=== PATIENT | male | born 1980 | race Hispanic/Latino ===

== ENCOUNTER 2020-03-27 00:47 | Emergency (ER) | payer SELFPAY ==
--- NOTE | ~2020-03-27 | US_ITS ---
EXAMINATION: US scrotum doppler EXAM DATE: 03/27/2020 02:02 INDICATION: Left testicular pain. TECHNIQUE: Multiple grayscale and Doppler images of the testicles and scrotum were obtained bilateral ly. There is no prior study for comparison. FINDINGS: Right testicle measures 4.0 x 2.3 x 3.1 cm and is morphologically normal. Low resistance Doppler kimberly w confirmed. The epididymis is unremarkable. There is a small hydrocele. Left testicle measures 4.0 x 2.3 x 3.0 cm and is morphologically normal. Low resistance Doppler flow confirmed. The epididymis is unremarkable. There is a small hydrocele and a small varicocele. IMPRESSION: 1. Small left-sided hydrocele and varicocele. 2. Small right hydrocele. 3. Normal testicular parenchyma. Reviewed, dictated and finalized at location A.
[2020-03-27 00:50] VITALS: BP 159/97; PULSE 89; RESP 14; TEMP 36.2; O2SAT 99
[2020-03-27] MEDS: KETOROLAC (*BKC) 60 MG/2 ML VIAL IM (01:31)
--- NOTE | 2020-03-27 01:50 | PC.NURSE ---
Pt. to ultrasound
[2020-03-27 02:31] LABS: Add Urine Microscopic? NO; Appearance Urine Clear (Clear); Bacteria Urine Trace /hpf; Bilirubin Urine Negative (Negative); Blood Urine Negative (Negative); Color Urine Straw (Yellow); Glucose Urine UA Negative (Negative); Ketones Urine Negative (Negative); Leukocyte Esterase Ur Negative LEU/UL (Negative); Nitrate Urine Negative (Negative); Protein Urine Negative (Negative); Specific Grav Ur 1.006 (1.001-1.035); Urobilinogen Urine Negative mg/dL (<2.0); WBC Urine 0-3 /hpf
--- NOTE | 2020-03-27 02:58 | ED.MALEGU ---
HPI - Male Genitourinary General Chief complaint: Urogenital-Male Stated complaint: penile pain Time Seen by Provider: 03/27/20 01:15 History of Present Illness HPI Narrative: Patient is a 39-year-old male who presents the ER with left-sided testicular pain. Ongoing for the last 5 days. Reports it began after he had carried a 22 foot ladder. No dysuria or urinary frequency. No blood in his urine. Does not believe she has any exposure for sexual transmitted infections. No discharge from tip of his penis. No masses that he can tell. No alleviating factors. Related Data Home Medications Medication Instructions Recorded Confirmed No Home Medications 03/27/20 Allergies Allergy/AdvReac Type Severity Reaction Status Date / Time No Known Allergies Allergy Verified 03/27/20 01:09 Review of Systems Constitutional: Constitutional: Denies chills and Denies fever(s) Gastrointestinal: Gastrointestinal: Denies abdominal pain, Denies nausea and Denies vomiting Genitourinary: Genitourinary: Denies hematuria, Denies dysuria, Denies penile discharge, Reports testicular pain and Denies urinary frequency PMFSH Past Medical History Medical History (Updated 03/27/20 @ 03:09 by Darrell Cummins MD) Healthy adult male Surgical History Surgical History (Updated 03/27/20 @ 03:00 by Darrell Cummins MD) No history of previous surgery Social History Social History (Updated 03/27/20 @ 03:00 by Darrell Cummins MD) Smoking status: Never smoker Exam Narrative: Exam Narrative: GENERAL: Well-appearing, well-nourished, and in no acute distress. HEAD: Normocephalic, atraumatic. ABDOMEN: Soft, nontender, nondistended. : Normal-appearing external genitalia with uncircumcised penis. No penile discharge. Mild discomfort along the vas deferens of the left testicle without testicular tenderness or swelling. No tenderness over the epididymis. Unremarkable exam of the right testicle. EXTREMITIES: Normal range of motion. No edema. NEURO: Alert and oriented x3. PSYCH: Normal mood and affect. Course Course Emergency Course: Patient educated regarding varicoceles. Will give urology follow-up. Vital Signs Vital signs: Vital Signs Temperature 97.2 F L 03/27/20 00:50 Pulse Rate 89 03/27/20 00:50 Respiratory Rate 14 03/27/20 00:50 Blood Pressure 159/97 H 03/27/20 00:50 Pulse Oximetry 99 03/27/20 00:50 Temperature 97.2 F L 03/27/20 00:50 Pulse Rate 89 03/27/20 00:50 Respiratory Rate 14 03/27/20 00:50 Blood Pressure 159/97 H 03/27/20 00:50 Pulse Oximetry 99 03/27/20 00:50 MDM - Male Genitourinary Lab Data Labs: Lab Results 03/27/20 Range/Units 02:07 Urine Color Straw (Yellow) Urine Appearance Clear (Clear) Urine pH 6.0 (5.0-9.0) Ur Specific [place] 1.006 (1.001-1.035) Urine Protein Negative (Negative) mg/dL Urine Glucose (UA) Negative (Negative) mg/dL Urine Ketones Negative (Negative) mg/dL Ur Blood (Man) Negative (Negative) Urine Nitrate Negative (Negative) Urine Bilirubin Negative (Negative) Urine Urobilinogen Negative (<2.0) mg/dL Leukocyte Esterase Rfl Negative (Negative) XANDER/UL Urine WBC 0-3 /hpf Urine Bacteria Trace /hpf Imaging Data Radiologist's impression: Ultrasound scrotum: Testicles are homogenous and symmetric in appearance. No evidence for testicular torsion bilaterally. Bilateral varicoceles. Trace bilateral hydroceles. Discharge Plan Discharge Clinical Impression: Varicocele Patient Disposition: Home, Self-Care Condition: Stable Instructions: Varicocele (ED), Testicle Pain (ED) Additional Instructions: Return to the ER if you have worsening pain, you develop fever over 100.4 ?F or you have additional concerns. Wear tight fitting underwear or jockstrap to prevent movement of your testicles. Take Tylenol and ibuprofen to help with your pain. If your symptoms persist you should follow-up
[2020-03-27 03:10] VITALS: BP 141/88; PULSE 91; RESP 19; TEMP 36.7; O2SAT 97
== END 2020-03-27 03:10 | disposition home or self-care (01) ==
PROVIDERS: Emergency Provider Emergency Medicine
DX: I86.1 Scrotal varices (principal)
CPT/HCPCS: 76870; 81003; 93976; 96372; 99284; J1885

== ENCOUNTER 2020-04-19 10:04 | Emergency (ER) | payer SELFPAY ==
[2020-04-19 10:07] VITALS: BP 155/92; PULSE 100; RESP 20; TEMP 36.4; O2SAT 100
--- NOTE | 2020-04-19 10:14 | ED.MALEGU ---
HPI - Male Genitourinary General Chief complaint: Urogenital-Male Stated complaint: PAIN IN MY PRIVATE PARTS Time Seen by Provider: 04/19/20 10:13 Source: patient Mode of arrival: ambulatory Limitations: no limitations History of Present Illness HPI Narrative: Patient is a 39-year-old male complaining of bilateral testicular pain that has been going on for the past 3 weeks. Patient denies any redness or swelling. Patient was seen here 3 weeks ago for the same complaint had an ultrasound done which showed small hydrocele and varicocele and nothing else. Patient denies any trauma to the area. Patient denies dysuria, hematuria or penile discharge. Related Data Home Medications Medication Instructions Recorded Confirmed No Home Medications 03/27/20 04/19/20 Allergies Allergy/AdvReac Type Severity Reaction Status Date / Time No Known Allergies Allergy Verified 04/19/20 10:11 Review of Systems Review of Systems: All systems reviewed & are unremarkable except as noted in HPI and below Constitutional: Constitutional: Denies body ache(s), Denies chills, Denies excessive sweating, Denies fatigue, Denies fever(s), Denies headache(s), Denies lethargy, Denies malaise, Denies weakness and Denies weight loss Eyes: Eyes: Denies blurry vision, Denies change in vision and Denies loss of vision ENT: Denies dizziness, Denies ear discharge, Denies headache(s), Denies lip swelling, Denies epistaxis, Denies nasal congestion, Denies neck pain, Denies throat swelling and Denies tongue swelling Cardiovascular: Cardiovascular: Denies chest pain, Denies chest pain at rest, Denies chest pain with activity, Denies diaphoresis, Denies rapid heart rate, Denies edema, Denies irregular heart rhythm, Denies lightheadedness, Denies palpitations, Denies dyspnea and Denies dyspnea on exertion Respiratory: Respiratory: Denies chest congestion, Denies cough, Denies hemoptysis, Denies dyspnea and Denies dyspnea on exertion Gastrointestinal: Gastrointestinal: Denies abdominal pain, Denies melena, Denies hematochezia, Denies diarrhea, Denies nausea, Denies vomiting and Denies hematemesis Musculoskeletal: Musculoskeletal: Denies abnormal gait, Denies deformity, Denies joint swelling, Denies limited range of motion, Denies neck pain and Denies numbness Neurologic: Denies Abnormal speech present, Denies abnormal gait, Denies confusion, Denies dizziness, Denies headache(s), Denies focal weakness, Denies loss of vision, Denies numbness, Denies Other visual disturbances, Denies Sensory deficit (Neuro) and Denies weakness Psychiatric: Psychiatric: Denies confusion, Denies depression, Denies auditory hallucinations, Denies homicidal ideation and Denies suicidal ideation Endocrine: Endocrine: Denies cold intolerance, Denies excessive sweating, Denies fatigue, Denies heat intolerance and Denies palpitations Hematologic/Lymphatic: Hematologic/Lymphatic: Denies easy bleeding and Denies easy bruising Allergic/Immunologic: Allergic/Immunologic: Denies lip swelling, Denies throat swelling and Denies tongue swelling PMFSH Past Medical History Medical History (Updated 04/19/20 @ 11:51 by Nik Barkley MD) Healthy adult male Surgical History Surgical History (Updated 03/27/20 @ 03:00 by Darrell Cummins MD) No history of previous surgery Social History Social History (Updated 03/27/20 @ 03:00 by Darrell Cummins MD) Smoking status: Never smoker Exam Const: General: cooperative, healthy appearing, comfortable, no acute distress, well developed, alert and awake; No confusion Orientation/consciousness: oriented to person, oriented to place, oriented to time, patient oriented x3 and No confusion Limitations: no limitations HENMT: Head: normal to inspection, normocephalic and atraumatic Ears: hearing grossly normal bilaterally General nose exam: Normal external nose present, Normal nares present and No nasal discharge present Face and sinus: normal
[2020-04-19 11:00] LABS: Add Urine Microscopic? NO; Appearance Urine Clear (Clear); Bilirubin Urine Negative (Negative); Blood Urine Negative (Negative); Color Urine Colorless (Yellow); Glucose Urine UA Negative (Negative); Ketones Urine Negative (Negative); Leukocyte Esterase Ur Negative LEU/UL (Negative); Nitrate Urine Negative (Negative); Protein Urine Negative (Negative); RBC Urine 0-2 /hpf (0-2); Urobilinogen Urine Negative mg/dL (<2.0); WBC Urine 0-3 /hpf
[2020-04-19 11:03] LABS: Specific Grav Ur 1.003 (1.001-1.035)
[2020-04-19] MEDS: HYDROcodone/acetaminophen (*CRX) 5-325 MG TABLET 1 TAB PO (12:16)
[2020-04-19] MEDS: KETOROLAC (*BKC) 60 MG/2 ML VIAL IM (12:16)
[2020-04-19 12:24] VITALS: BP 144/80; PULSE 80; RESP 20; O2SAT 98
== END 2020-04-19 12:25 | disposition home or self-care (01) ==
PROVIDERS: Emergency Provider Emergency Medicine
DX: N50.812 Left testicular pain (principal); N50.811 Right testicular pain; N50.82 Scrotal pain
CPT/HCPCS: 81003; 96372; 99283; A9270; J1885

== ENCOUNTER 2022-11-04 11:30 | Emergency (ER) | payer SELFPAY ==
--- NOTE | ~2022-11-04 | XR_ITS ---
Left Hand Technique: PA and lateral views were obtained. Clinical History: Pain Findings: No acute fracture or dislocation is seen. Osseous alignment is anatomic. Joint spaces are p reserved. Soft tissues are unremarkable. Impression: Unremarkable left hand. Reviewed, dictated and finalized at location M. Impression: Unremarkable left hand.
[2022-11-04 11:47] VITALS: BP 127/80; PULSE 98; RESP 16; TEMP 36.4; O2SAT 95
[2022-11-04] MEDS: IBUPROFEN 600 MG TABLET PO (12:59)
[2022-11-04] MEDS: TETANUS,DIPHTHERIA,AC PERTUSSIS ADULT (0.5 ML) BOOSTRIX IM (12:59)
--- NOTE | 2022-11-04 13:17 | ED.UPPEXIN ---
HPI - Extremity Injury (Upper) General Chief Complaint: Extremity Injury, Upper Stated Complaint: left hand injury Time Seen by Provider: 11/04/22 11:59 Source: patient Mode of arrival: ambulatory Limitations: no limitations History of Present Illness HPI narrative: Patient is a 42-year-old male who presents to ED with report of a laceration to his left hand. Patient reports he was working on a collapsible ladder and had his hand resting on one of the prongs when the ladder collapsed down directly on his left hand. He sustained a small laceration to left dorsal hand. No other injuries. No significant numbness or tingling. Patient is unsure of tetanus status, believes it was maybe 8 to 9 years ago. Related Data Home Medications Medication Instructions Recorded Confirmed No Home Medications 03/27/20 04/19/20 Allergies Allergy/AdvReac Type Severity Reaction Status Date / Time No Known Allergies Allergy Verified 11/04/22 11:31 Review of Systems Review of Systems: CONSTITUTIONAL: Denies fever, chills, or sweats. SKIN: See HPI. MUSCULOSKELETAL: See HPI. NEUROLOGIC: Denies tingling, numbness, or weakness. All systems reviewed & are unremarkable except as noted in HPI and below PMFSH Past Medical History Medical History Healthy adult male Surgical History Surgical History No history of previous surgery Social History Social History Smoking status: Never smoker Exam Narrative: GENERAL: Well appearing, well-nourished, non-toxic, in no acute distress. HEAD: Normocephalic, atraumatic. NECK: Supple. No adenopathy, no masses. RESPIRATORY: Airway patent, respirations nonlabored. CARDIOVASCULAR: Regular rate and rhythm without murmurs, rubs, or gallops. Radial pulses 2+ and equal bilaterally. MUSCULOSKELETAL: Moves all extremities. Strength/ROM intact without gross deformities. Tenderness to palpation over area of mid fourth and fifth metacarpals, over region of laceration. Sensation intact. Good capillary refill. SKIN: Warm, dry, normal color. No rashes. 1 cm lateral laceration to dorsal left hand over area of mid fourth and fifth metacarpals. No active bleeding. NEURO: A&O X3. Speech clear. Cranial nerves II-XII grossly intact. Steady gait. No ataxic movements. PSYCHIATRIC: Appropriate mood and affect. Normal interaction. Course Vital Signs Vital signs: Vital Signs Temperature 97.6 F 11/04/22 11:47 Pulse Rate 98 11/04/22 11:47 Respiratory Rate 16 11/04/22 11:47 Blood Pressure 127/80 11/04/22 11:47 Pulse Oximetry 95 11/04/22 11:47 Oxygen Delivery Room Air 11/04/22 11:47 Temperature 97.6 F 11/04/22 11:47 Pulse Rate 98 11/04/22 11:47 Respiratory Rate 16 11/04/22 11:47 Blood Pressure 127/80 11/04/22 11:47 Pulse Oximetry 95 11/04/22 11:47 Oxygen Delivery Room Air 11/04/22 11:47 Procedures Laceration Laceration 1: Date: 11/04/22 Time: 13:10 Site: hand Side (If applicable): left Size (cm): 1 Description: linear Depth: simple, single layer Local Anesthetic: lidocaine 1% Amount of anesthesia used (mL): 3 Pre-repair: wound explored, irrigated and irrigated extensively ====== Skin Level ====== Skin layer closed with: nylon Size (cm): 4-0 and 5-0 Number of sutures: 2 Technique: simple, interrupted ====== Subcutaneous Layer ====== ====== Muscle Layer ====== ====== Tendon Layer ====== MDM - Extremity Injury (Upper) [facility] Narrative Medical decision making narrative: X-ray without signs of fracture or foreign body. Laceration irrigated and repaired without complications. Patient was unsure of the exact date of his last tetanus shot. I did discuss this with luis antonio
[2022-11-04] MEDS: LIDOCAINE HCL 1% LOCAL INJ 10 ML VIAL 2 ML INFILTRATE (13:26)
[2022-11-04 13:27] VITALS: BP 116/70; PULSE 67; O2SAT 98
== END 2022-11-04 13:27 | disposition home or self-care (01) ==
PROVIDERS: Emergency Provider Physician Assistant
DX: S61.412A Laceration without foreign body of left hand, initial encounter (principal); S60.222A Contusion of left hand, initial encounter; Z23 Encounter for immunization; W45.8XXA Other foreign body or object entering through skin, initial encounter
CPT/HCPCS: 12001; 73120; 90471; 90715; 99283; A9270